=== PATIENT | female | born 1990 | race Hispanic/Latino ===

== ENCOUNTER 2019-06-11 19:26 | Emergency (ER) | payer MEDICAID ==
[2019-06-11 20:16] LABS: HCG,QUAL RESULT NEGATIVE (NEGATIVE)
[2019-06-11 20:17] LABS: APPEARANCE,URINE Clear (CLEAR); BILIRUBIN,URINE Negative (NEGATIVE); COLOR,URINE Yellow (YELLOW); GLUCOSE, URINE (UA) Negative (NEGATIVE); KETONES,URINE Trace mg/dL (NEGATIVE); LEUKOCYTE ESTERASE ,URINE Negative (NEGATIVE); NITRATE,URINE Negative (NEGATIVE); OCCULT BLOOD,URINE Negative (NEGATIVE); PH,URINE 6.5 (5.0-8.0); PROTEIN,URINE Negative (NEGATIVE); UROBILINOGEN,URINE 0.2 mg/dL (0.2-1.0)
[2019-06-11 20:36] LABS: RBC,URINE 0-1 /HPF (0-1); SQUAMOUS EPITHELIAL CELL,UR Rare /HPF (0-2); WBC,URINE 0-1 /HPF (0-1)
[2019-06-11 20:37] LABS: BACTERIA,URINE Few /HPF (None Seen)
== END 2019-06-11 20:31 | disposition home or self-care (01) ==
LOC: EDH 19:26
DX: L03.115 Cellulitis of right lower limb (principal); J45.909 Unspecified asthma, uncomplicated
CPT/HCPCS: 81001; 81025

== ENCOUNTER 2019-06-12 14:05 | Inpatient (IN) | payer MEDICAID | END 2019-06-15 16:30 | disposition home or self-care (01) | LOC: EDH 14:05 → EDHIP 14:06 → 3DH 20:39 | DX: K61.1 Rectal abscess (principal) ==